=== PATIENT | female | born 1935 | race Caucasian/White ===

== ENCOUNTER → 2016-08-01 | Day surgery (SDC) | payer MEDICARE, BC ==
[~2016-08-01] VITALS: Ht 157.5 cm; Wt 65.5 kg
[~2016-08-01] MED LIST: AMOXICILLIN500 M1 PO; ANAFRANIL25 MG PO; ASACOL HD800 MG PO; ASPIRIN LO-DOSE81 MG PO; BUSPIRONE HCL15 MG PO; CALCIUM 600 +1 EAC6 PO; CALCIUM CARBON600 MG PO; CODEINE PO; COLACE100 MG PO; COREG25 MG PO; DULCOLAX10 MG R; DURAGESIC 25MC25 MCG TRANS; ECOTRIN325 MG PO; FIBERCON1 TAB PO; FISH OIL 1,2001 EAC1 PO; FOSAMAX70 MG PO; GLUCOSAMINE CH1 EAC6 PO; GUAIFENESIN PO; HYDROCODON-ACE1 EAC4 PO; ICAPS TABLET1 EACH PO; KLONOPIN0.5 MG PO; LEVOTHROID (SY50 MCG PO; LIPITOR20 M1 PO; LISINOPRIL-HCT1 EAC1 PO; LOVENOX 4040 MG/0.4 SUB-Q; MAG-OX-400(241400 MG PO; MILK OF MA400 MG/5 M PO; MIRALAX PO527 GM/BOT PO; MIRALAX17 GM PO; MYCOSTATIN CREA30 GM TOP; NACL TABS1 GM PO; NORCO 5-325 MG1 TAB PO; NORCO 7.5-3251 EACH PO; NORVASC5 MG PO; PRILOSEC20 MG PO; PRINIVIL (ZESTR20 MG PO; PSEUDOEPHEDRINE PO; REFRESH CLASSI1 EACH OPHTH; SALINE MIST45 ML NOSE; THERAGRAN-M1 TAB PO; TRAMADOL HCL50 MG PO; TYLENOL EXTRA500 MG PO; VITAMIN D1000 UNI1 PO; XARELTO20 MG PO; ZOCOR40 MG PO; ZYRTEC10 MG PO
== END | disposition disaster alternative care site (69) ==
LOC: GPOC 07-27 10:00 → GEND 07:30 → GPOC 10:00
PROC: 0DBE8ZX Excision of Large Intestine, Via Natural or Artificial Opening Endoscopic, Diagnostic (ICD-10-PCS; principal; 2016-08-01)
DX: K63.89 Other specified diseases of intestine (principal); K57.30 Diverticulosis of large intestine without perforation or abscess without bleeding; K64.8 Other hemorrhoids; Z86.010 Personal history of colon polyps; Z87.19 Personal history of other diseases of the digestive system; I48.91 Unspecified atrial fibrillation; I25.10 Atherosclerotic heart disease of native coronary artery without angina pectoris; I10 Essential (primary) hypertension; E03.9 Hypothyroidism, unspecified; M19.90 Unspecified osteoarthritis, unspecified site; M81.0 Age-related osteoporosis without current pathological fracture
CPT/HCPCS: J7030

== ENCOUNTER → 2016-09-07 | Outpatient (CLI) | payer MEDICARE, BC | END | disposition disaster alternative care site (69) | LOC: LGSMG 13:51 | DX: N39.0 Urinary tract infection, site not specified (principal) ==

== ENCOUNTER → 2016-09-13 | Outpatient (CLI) | payer MEDICARE, BC | END | disposition disaster alternative care site (69) | LOC: GRAD 10:37 | DX: R31.9 Hematuria, unspecified (principal); R80.9 Proteinuria, unspecified ==